=== PATIENT | female | born 1965 | race Caucasian/White ===

== ENCOUNTER → 2021-04-12 08:21 | Outpatient (BNVA) | payer OTHER, SELFPAY | PROVIDERS: PCP Internal Medicine Geriatric Medicine; Visit Provider Anesthesiology ==

== ENCOUNTER → 2021-04-26 08:04 | Outpatient (BNVA) | payer OTHER, SELFPAY | PROVIDERS: PCP Internal Medicine Geriatric Medicine; Visit Provider Anesthesiology ==

== ENCOUNTER 2025-05-03 09:06 | Day surgery (SDC) | payer OTHER, SELFPAY ==
--- OUTSIDE RECORDS SUMMARY | 2024-07-01 11:35 | XMS_ITS ---
Author Organization [facility] Address [address] [place] [phone] Care Team Providers Care River Guide Name Role Phone Foster DANIELLE, Lauren Primary Care Provider Tj Garcia Jr, Lars Unavailable REASON FOR VISIT IBS Encounters Encounter Location Date Provider Diagnosis [facility] [address] [facility] [address] [place] [phone] 07/01/2024 Lars Garcia Jr Plan Of Treatment Next Appt Details Provider Name:Lars barrientos Jr, 05/03/2025 10:20:00 AM, [address] [place] [address] , [place], [place], [phone], Progress Notes * TALA IZQUIERDODOB: 4 (59 yo F)Acc No.[id number]:07/01/2024 Progress Notes Patient: TALA DE OLIVEIRA Provider: Taiwo Garcia MD :1965 A ge:58 Y S ex:Female Date:07/01/2024 Address:[id number] Pcp:Lauren Hutchison MD Subjective: * Chief Complaints: * 1 . IBS. * Medical History: Objective: * Vitals: Assessment: Plan: * Treatment: * * The named appointment provid er may or may not be the originator of this progress note, and it is not deemed complete until electronically signed by the appointment provider. Sign off status: Pending * Provider: Taiwo Garcia MD Date: 1 09/01/2023 Generated for Marry earl/Ted/Gustavoitting on: 0 04/12/2025 04:20 PM EDT
--- OUTSIDE RECORDS SUMMARY | 2025-04-12 16:20 | XMS_ITS | Encounter Summary ---
Author Organization [facility] Address [address] [place] [address] Phone Care Team Providers Care Radio Division Lieutenant Name Role Phone Lauren Hutchison MD Primary Care Provid er Encounter Details Date Type Department Care Team (Late st Contact Info) Description 02/07/2021 Procedure Pass OR Admitting Dept - Virtual Department [address] [place] [address] Social History Tobacco Use Types Packs/Day Years Used Date Smoking Tobacco: Former Cigarettes Q uit: 2002 Smokeless Tobacco: Never Alcohol Use Standard Drinks/Week Comments No 0 (1 standard drink = 0.6 oz pur e alcohol) Comments No Sex and Gender Information Value Date Recorded Sex Assigned at Female 12/19/2022 8:51 AM EDT Legal Sex Female 9:43 PM EDT Gender Identity Female 12/19/2022 8:51 AM EDT Sexual Orientation Choose not to disclose 2022 8:51 AM EDT documented as of this encounter Plan of Treatment Not on file documented as of this encounter Visit Diagnoses Not on filedocumented in this encounter Care Teams Radio Division Lieutenant Relationship Specialty Start Date End Date Lauren Hutchison MD [address] [place] [address] PCP - General Geriatric Psychiatry 03/09/18 documented as of this encounter Additional Source Comments The information contained in this document represents components of the legal health record. It is not the complete legal health record.[facility]
--- OUTSIDE RECORDS SUMMARY | 2025-04-12 16:20 | XMS_ITS | Encounter Summary ---
Author Organization [facility] Address [address] [facility] [address] [place] [address] Phone Care Team Providers Care Nursing Service Director Name Role Phone Lauren Hutchison MD Primary Care Provid er Reason for Referral * Outpatient Procedure - Closed Specialty Diagnoses / Procedures Referred By Damien medel Referred To Contact Diagnoses Cerebral infarction, unspecified mechanism Transient cerebral ischemia, unspecified type Procedures Adult Echo TTE Timmy Gama MD [address] [facility] Radiation oncology [place], [place] Phone: tel: fax: Referral ID Status Reason Start Date Expiration Date Visits Re quested Visits Authorized [id number] Closed 05/31/2021 05/31/2022 1 1 Encounter Details Date Type Department Care Team (Latest Contact Info) Description 05/31/2021 Transcribe Orders Virtual Department [address] [place] [address] Timmy Hudson MD [address] [place] [address], [address] [place] [address] [email or web address] Cerebral infarction, unspecified mechanism; Transient cerebral ischemia, unspecified type Social History Tobacco Use Types Packs/Day Years [...] on file documented as of this encounter Results * TTE COMPREHENSIVE W/ LVO CONTRAST (08/02/2021 11:34 AM EST) Body Surface Area 1.97 m2 Height 160 cm Weight 95 kg Systolic BP 126 mmHg Diastolic BP 72 mmHg Interventricular Septum Thickness 7 mm Left Ventricle Internal Diameter End Diastole 45 37 - 52 mm Left Ventricle Internal Diameter End Systole 31 22 - 35 mm Left Ventricular Outflow Tract Diameter 20.0 mm LVOT VTI REST 161 mm Left Ventricular Outflow Tract Velocity 1.1 m/s Left Ventricular Outflow Tract Gradient at Rest 5 mmHg Left Ventricular Posterior Wall Thickness 7 mm Ejection Fraction 73 50 - 75 Percent Left Atrium Dimension Anterior-Posterior 27 15 - 40 mm Aortic Valve Peak Velocity 133.0 cm/s Aortic Valve Peak Gradient 7 mmHg Aortic Sinus Diameter 30 mm Ascending Aorta Diameter 28 mm Inferior Vena Cava Diameter 13 0 - 21 mm Mitral Valve A Wave Speed 82.3 cm/s Mitral Valve E Wave Speed 48.0 cm/s Right Ventricle Basal Diameter 29.8 25 - 41 mm Tricuspid Valve Peak Velocity 1.8 m/s Raw LV EF% 53 % Left Atrial Volume 25 mL Left Atrial Volume Index 12.69 mL/m2 Right Ventricle Peak Systolic Pressure 16 mmHg Right Ventricle TAPSE 13.0 mm Right Atrium Pressure Estimated 3 mmHg Right Ventricle to Right Atrium Pressure Gradient 13 mmHg Right Ventricle Pulse Doppler S Wave 10.9 cm/s Aortic Valve Sinus Index 1 15 19 - 27 mm Ascending Aorta Diameter 14 mm Aortic Sinus Index 15 mm Ascending Aorta Index 14 mm Anatomical Region Laterality Modality Heart Ultrasound Narrative 08/02/2021 11:54 AM EST The left ventricle is normal in size and thickness. The left ventricular systolic function is normal with ejection fraction of 73%. There is no significant left ventricular wall motion abnormality. There is normal right ventricular size and function. There is trace mitral, and tricuspid valve regurgitation. Pulmonary artery systolic pressure is normal. Unable to visualize if patent foramen ovale/interatrial shunting is present due to poor images. No previous studies are available for comparison. Left Ventricle The left ventricular cavity size and wall thickness are normal. Left ventricular systolic function is normal. The estimated ejection fraction is 73% (Normal 50- 75%). The left ventricular ejection fraction was measured by the single dimension method. Left ventricular diastolic function appears within normal limits for age. Right Ventricle The right ventricular size is normal. The right ventricular systolic function is normal. Left Atrium The left atrium is normal in size. The left atrial anterior-posterior dimension measures 27 mm (normal 15-40 mm). The LA volume is 25 mL. The LA volume index is 12.69 mL/m2 (normal indexed value is 16-34 mL/m2). The pulmonary venous flow profiles are normal. Right Atrium The right atrium is normal in size. The IVC is normal in size (2.1cm or less). The IVC measures 13 mm (normal <=21 mm). The IVC demonstrates normal collapse with inspiration which is consistent with normal RA pressure. Mitral Valve The E/A ratio is 0.6. The Med E' Trevor is 6.3 cm/s and the Lat E' Trevor is 7.2 cm/s. The E/E' AVG is 7.1. There is no evidence of mitral stenosis. There is trace mitral regurgitation detected by spectral and color Doppler. Tricuspid Valve There is no evidence of tricuspid stenosis. There is evidence of trace tricuspid regurgitation by color and spectral Doppler. Normal pulmonary pressure. The RV systolic pressure was estimated from the peak TV regurgitant velocity. The estimated RV systolic pressure is 16 mmHg assuming a right atrial pressure of 3 mmHg. The calculated peak RV-RA pressure gradient is 13 mmHg. Aortic Valve The aortic valve is tricuspid. There is no evidence of valvular aortic stenosis. The peak aortic valve gradient is 7 mmHg. There is no evidence of aortic regurgitation by color and spectral Doppler. The visualized portions of the thoracic aorta appear normal. Pulmonic Valve There is no evidence of pulmonic stenosis. There is no evidence of pulmonary regurgitation by color and spectral Doppler. Pericardium There is no evidence of pericardial effusion. Interatrial Septum The interatrial septum is not well visualized. Unable to visualize if PFO/interatrial shunting is present. General Findings The study was technically difficult (4). Study quality explanation: body habitus. Technique(s) used in the evaluation: Color flow Doppler and Spectral Doppler. The predominant rhythm during the study was sinus. Comparison Findings No prior studies for comparison. us Timmy Gama MD CV ECHO ORDERABLES Final Result documented in this encounter Visit Diagnoses Diagnosis Cerebral infarction, unspecified mechanism Transient cerebral ischemia, unspecified type Cerebral infarction, unspecified mechanism Transient cerebral ischemia, unspecified type documented in this encounter Care Teams Nursing Service Director Relationship Specialty Start Date End Date Lauren Hutchison MD [address] [place] [address] PCP - General Geriatric Psychiatry 03/09/18 documented as of this encounter Additional Source Comments The information contained in this document represents components of the legal health record. It is not the complete legal health record.[facility]
--- OUTSIDE RECORDS SUMMARY | 2025-04-12 16:20 | XMS_ITS | Encounter Summary ---
Author Organization [facility] Address [address] [place] [address] Care Team Providers Care Rehabilitation Liaison Name Role Phone Lauren Hutchison MD Primary Care Provider [phone] Sandra Aquino RN Unavailable [phone] Encounter Details Date Type Department Care Team (Late Contact Info) Description 06/19/2023 Scanned Document [facility] [id number] [address] [address] Amanuel Montalvo MD [address] [place] [address] Social History Tobacco Use Types Packs/Day Years Used Date Smoking Tobacco: Never Smokeless Tobacco: Never Alcohol Use Standard Drinks/Week Comments Not Currently 0 (1 standard drink = 0.6 oz pur e alcohol) Comments Unknown Sex and Gender Information Value Date Recorded Sex Assigned at Female 08/30/2024 5:58 AM EST Legal Sex Female 9:28 AM EDT Gender Identity Female 08/30/2024 5:58 AM EST Sexual Orientation Heterosexual (straight) 08/30 5:58 AM EST documented as of this encounter Plan of Treatment Upcoming Encounters Date Type Department Care Team ([facility] Contact Info) Description 05/26/2025 11:00 AM EST Office Visit [facility] [id number] [address] [address] Trever Dickson PA [address] [place] [address] documented as of this encounter Visit Diagnoses Not on filedocumented in this encounter Care Teams Rehabilitation Liaison Relationship Specialty Start Date End Date Lauren Hutchison MD [address] [place] [address] PCP - General 05/05/23 Sandra Aquino RN [address] [place] [address] Nurse Navigator Surgery, Neurosurgery 09/09/24 12/09/24 documented as of this encounter
--- OUTSIDE RECORDS SUMMARY | 2025-04-12 16:20 | XMS_ITS | Encounter Summary ---
Author Organization [facility] Address [address] [place] [address] Care Team Providers Care Display Maker Name Role Phone Lauren Hutchison MD Primary Care Provider [phone] Sandra Aquino RN Unavailable [phone] Encounter Details Date Type Department Care Team (Late Contact Info) Description 06/19/2023 Scanned Document [facility] [id number] [address] [address] Amanuel Montalvo MD [address] [place] [address] Social History Tobacco Use Types Packs/Day [...] Upcoming Encounters Date Type Department Care Team ([facility] Contact Info) Description 05/26/2025 11:00 AM EST Office Visit [facility] [id number] [address] [address] Trever Dickson PA [address] [place] [address] documented as of this encounter Visit Diagnoses Not on filedocumented in this encounter Care Teams Display Maker Relationship Specialty Start Date End Date Lauren Hutchison MD [address] [place] [address] PCP - General 05/05/23 Sandra Aquino RN [address] [place] [address] Nurse Navigator Surgery, Neurosurgery 09/09/24 12/09/24 documented as of this encounter
--- OUTSIDE RECORDS SUMMARY | 2025-04-12 16:20 | XMS_ITS | Encounter Summary ---
Author Organization [facility] Address [address] [place] [address] Care Team Providers Care Oil Burner Name Role Phone Lauren Hutchison MD Primary Care Provider [phone] Sandra Aquino RN Unavailable [phone] Encounter Details Date Type Department Care Team (Late Contact Info) Description 02/05/2024 Scanned Document [facility] NEUROSURGERY SCAN Neurosurgery, Scan Social History Tobacco Use Types Packs/Day Years [...] Upcoming Encounters Date Type Department Care Team (Late Contact Info) Description 05/26/2025 11:00 AM EST Office Visit [facility] [id number] [address] [place] [address] Trever Dickson PA [address] [place], [place] [id number] documented as of this encounter Visit Diagnoses Not on filedocumented in this encounter Care Teams Oil Burner Relationship Specialty Start Date End Date Lauren Hutchison MD [address] [facility] [place], [place] [address] PCP - General 05/05/23 Sandra Aquino, PHILLIP [address] [place] [address] Nurse Navigator Surgery, Neurosurgery 09/09/24 12/09/24 documented as of this encounter
--- OUTSIDE RECORDS SUMMARY | 2025-04-12 16:20 | XMS_ITS | Clinical Summary ---
Author Organization [facility] Address [address] [place] [address] Care Team Providers Care Operating Room Surgical Technologist Name Role Phone Lauren Hutchison MD Primary Care Provider [phone] Allergies Active Allergy Reactions Criticality Noted Date Comments Influenza Virus Vaccine 02/01/2021 All flu shots arm swelling redness painful for about a week after unless she takes benedryl Naproxen 12/12/2016 Other reaction(s): Dizziness Medications Medication Sig Dispensed Refills Start Date End Date Status traMADol (ULTRAM) 50 MG tablet Take 50 mg by mouth every 12 (twelve) hours as needed. 0 Active nortriptyline (PAMELOR) 10 MG capsule 0 10/29/2023 Active RABEprazole (ACIPHEX) 20 MG tablet 0 10/14/2023 Active atorvastatin (LIPITOR) tablet 20 mg Take 1 tablet (20 mg total) by mouth daily. 0 09/27/2023 Active amLODIPine (NORVASC) tablet 5 mg 0 09/30/2023 Active gabapentin (NEURONTIN) 600 MG tablet 0 09/11/2023 Active metaxalone (SKELAXIN) 800 MG tablet TAKE 1 TABLET BY MOUTH FOUR TIMES A DAY NEEDED SPASM 0 09/27/2023 Active clonazePAM (KlonoPIN) 0.5 MG tablet 0 09/23/2023 Active aspirin 81 MG EC tablet Take 1 tablet (81 mg total) by mouth. 0 Active Specialty Vitamins Products (ECHINACEA C COMPLETE PO) Take by mouth. 0 Active ondansetron (ZOFRAN) 4 MG tablet Take by mouth. 0 Active Social History Tobacco Use Types Packs/Day Years Used Date Smoking Tobacco: Never Assessed Tobacco Cessation:Counseling Given: Not Answered Sex and Gender Information Value Date Recorded Sex Assigned at Not on file Gender Identity Not on file Sexual Orientation Not on file Job Start Date Occupation Industry Not on file Not on file Not on file Last Filed Vital Signs Vital Sign Reading Time Taken Comments Blood Pressure 162/87 11/27/2023 2:00 PM EDT Pulse 105 11/27/2023 2:00 PM EDT Temperature 36.3 C (97.4 F) 11/27/2023 2:00 PM EDT Respiratory Rate - - Oxygen Saturation 98% 11/27/2023 2:00 PM EDT Inhaled Oxygen Concentration - - Weight 93 kg (205 lb) 11/27/2023 2:00 PM EDT Height 157.5 cm (5' 2 ) 11/27/2023 2:00 PM EDT Body Mass Index 37.49 11/27/2023 2:00 PM EDT Plan of Treatment Health Maintenance Due Date Last Done Comments Hepatitis C Screening 1965 Depression Screening 1975 BMI Counseling 12/05/1981 Preventative Health Evaluation 12/05/1981 DTap / Tdap / Td (1 - Tdap) 12/05/1982 Cervical Cancer Screening (Pap Smear) 12/05/1984 Colon Cancer Screening (Colonoscopy) 12/05/2008 Breast Cancer Screening (Mammogram) 12/05/2013 Shingrix-Zoster Vaccine (1 of 2) 12/05/2013 COVID-19 Vaccine ( season) 2025 06/23/2021 Influenza Vaccine (#1) 2025 3, 05/08/2022, 04/25/2021, Additional history exists RSV Adult > 60+ Yrs or (1 - 1-dose 75+ series) 12/05/2038 Hepatitis B Vaccines Aged Out No long er eligible based on patient's age to complete this topic Pneumococcal Vaccine Aged Out No long er eligible based on patient's age to complete this topic RSV Ped < 20 months Aged Out No longe r eligible based on patient's age to complete this topic Insurance Payer Benefit Plan / Group Subscriber ID Effective Dates Phone Address [facility] [id number] 2021-Present [address] [facility] [address] [place] [address] HMO Care Teams Operating Room Surgical Technologist Relationship Specialty Start Date End Date Lauren Hutchison MD [address] [facility] Primary [place] [phone] PCP - General Internal Medicine 06/06/21
--- OUTSIDE RECORDS SUMMARY | 2025-04-12 16:20 | XMS_ITS | Encounter Summary ---
Author Organization [facility] Address [address] [address] Phone Care Team Providers Care Gym Teacher Name Role Phone Lauren Hutchison MD Primary Care Provid er Encounter Details Date Type Department Care Team ([facility] st Contact Info) Description 05/31/2021 Procedure Pass [facility] [address] [place] [address] Social History Tobacco Use Types Packs/Day Years [...] on filedocumented in this encounter Care Teams Gym Teacher Relationship Specialty Start Date End Date Lauren Hutchison MD [address] [place] [address] PCP - General Geriatric Psychiatry 03/09/18 documented as of this encounter Additional Source Comments The information contained in this document represents components of the legal health record. It is not the complete legal health record.[facility]
--- OUTSIDE RECORDS SUMMARY | 2025-04-12 16:21 | XMS_ITS | Encounter Summary ---
Author Organization [facility] Address [address] [place] [address] Care Team Providers Care Deck Lid Fitter Name Role Phone Lauren Hutchison MD Primary Care Provider [phone] Sandra Aquino RN Unavailable [phone] Encounter Details Date Type Department Care Team (Late Contact Info) Description 04/22/2024 Scanned Document [facility] NEUROSURGERY SCAN Neurosurgery, Scan Social History [...] 11:00 AM EST Office Visit [facility] [id number] [address] [place] [address] Trever Dickson PA [address] [place], [place] [phone] documented as of this encounter Visit Diagnoses Not on filedocumented in this encounter Care Teams Deck Lid Fitter Relationship Specialty Start Date End Date Lauren Hutchison MD [address] [facility] [place], [place] [address] PCP - General 05/05/23 Sandra Aquino, PHILLIP [address] [place] [address] Nurse Navigator Surgery, Neurosurgery 09/09/24 12/09/24 documented as of this encounter
--- OUTSIDE RECORDS SUMMARY | 2025-04-12 16:21 | XMS_ITS | Encounter Summary ---
Author Organization [facility] Address [address] [facility] [address] [place] [address] Phone Care Team Providers Care Base Filler Operator Name Role Phone Lauren Hutchison MD Primary Care Provid er Encounter Details Date Type Department Care Team ([facility] st Contact Info) Description 01/16/2021 Prep for Surgery [facility] [address] [place] [address] Rylie Mcnair MD [address] [place] [address] Orthopedics & Sports Medicine, [facility]. [place], [place] [phone] [email or web address] Social History Tobacco Use Types Packs/Day Years [...] on filedocumented in this encounter Care Teams Base Filler Operator Relationship Specialty Start Date End Date Lauren Hutchison MD [address] [facility] [place], [place] [id number] PCP - General Geriatric Psychiatry 03/09/18 documented as of this encounter Additional Source Comments The information contained in this document represents components of the legal health record. It is not the complete legal health record.[facility]
--- OUTSIDE RECORDS SUMMARY | 2025-04-12 16:21 | XMS_ITS ---
Author Name [facility] Organization Unknown History of Medication Use Medication Directions Dispensed Refills Start Date End Date Stat lidocaine (LIDODERM) 5 % patch Place 1 patch on the skin daily. Apply patch to left hip and leave on for 12 hours then remove. Patch may remain on skin for 12 hours per day. 12/10/2024 active acetaminophen (TYLENOL) 325 MG tablet Take 2 tablets (650 mg total) by mouth 4 times daily (every 6 hours) as needed for mild pain, moderate pain, headaches or fever. 09/08/2024 active methocarbamol (ROBAXIN) 750 MG tablet Take 1 tablet (750 mg total) by mouth 4 times daily (every 6 hours) as needed for muscle spasms. 09/08/2024 active oxyCODONE (ROXICODONE) 5 MG immediate release tablet Take 1 tablet (5 mg total) by mouth every 4 (four) hours as needed for severe pain. Max Daily Amount: 30 mg 09/08/2024 active fluticasone (FloNASE) 50 mcg/spray nasal spray 1 spray into each nostril as needed. 01/29/2024 active estradiol (Yuvafem) 10 MCG vaginal tablet See Instructions, TAKE 1 TABLET VAGINALLY AT BEDTIME TWICE WEEKLY, # 26 tablet, 3 Refills, Maintenance, 08/19/23 17:04:00 EST, [facility], 158, cm, 07/31/23 9:51:00 EST, Height, 93.6, kg, 01/30/23 10:10:00 EDT, Dry Weight 08/19/2023 active traMADol (ULTRAM) 50 MG tablet 05/20/2023 active metaxalone (SKELAXIN) 800 MG tablet 05/16/2023 active metaxalone (SKELAXIN) 800 MG tablet Take 1 tablet (800 mg total) by mouth 3 times daily (every 8 hours) as needed. 05/16/2023 active nortriptyline (PAMELOR) 10 MG capsule 3 capsules (30 mg total) nightly. 04/17/2023 active DULoxetine (CYMBALTA) 60 MG capsule 04/03/2023 aborted amLODIPine (NORVASC) 5 MG tablet 04/03/2023 active amLODIPine (NORVASC) 5 MG tablet 1 tablet (5 mg total) nightly. 04/03/2023 active atorvastatin (LIPITOR) 20 MG tablet Take 1 tablet (20 mg total) by mouth daily. 03/13/2023 active gabapentin (NEURONTIN) 600 MG tablet 03/10/2023 active gabapentin (NEURONTIN) 600 MG tablet Take 1 tablet (600 mg total) by mouth 2 (two) times a day. 03/10/2023 active RABEprazole (ACIPHEX) 20 MG tablet 03/10/2023 active acetaminophen (TYLENOL) 500 MG tablet Take 1 tablet (500 mg total) by mouth 4 times daily (every 6 hours) as needed. active DULoxetine (Cymbalta) 60 MG capsule Take 1 capsule (60 mg total) by mouth every morning. active methylPREDNISolone (MEDROL) 4 MG tablet Take 1 tablet (4 mg total) by mouth daily. Take with meals or food to reduce stomach upset. active Probiotic Product (PROBIOTIC PO) Take by mouth every morning. active Allergies Allergen Reaction Severity Comment Documented Date Source Statu s CORTISONE OTHER (SEE COMMENTS)UNKNOWN/ PATIENT AND FAMILY UNABLE TO DEFINE Per patient certain cortisone cause dizziness & nauseous 04/03/20[facility] PEANUT OIL ANAPHYLAXIS 02/01/2021 [facility] active NUTS ANAPHYLAXIS 01/31/2021 [facility] active NAPROXEN OTHER (SEE COMMENTS) 12/12/2016 [facility] active INFLUENZA VACCINES UNKNOWN/PATIENT AND FAMILY UNABLE TO DEFINE All flu shots arm swelling redness painful for about a week after unless she takes benedryl [facility] Problems Problem Status Onset Date Problem Type Date of Resoluti on Source Pain of left hip active 2024-12-10 [facility] Spondylosis of lumbar spine active 2023-05-22 [facility] Sacroiliac joint pain active 2023-05-22 ProblemAct [facility] Sprain of sacroiliac ligament active 2024-03-17 ProblemAct [facility] Encounters Encounter Type Encounter Reason Primary Diagnosis Location Date Ambulatory Sacrococcygeal disorders, not elsewhere classified Sacrococcygeal disorders, not elsewhere classified [facility] 02/21/2025 Ambulatory [facility] 01/31/2025 Ambulatory Knee Pain Knee Pain [facility] 12/10/2024 Ambulatory [facility] 10/28/2024 Ambulatory Sacrococcygeal disorders, not elsewhere classified Sacrococcygeal disorders, not elsewhere classified [facility] 10/28/2024 Ambulatory Sacrococcygeal disorders, not elsewhere classified Sacrococcygeal disorders, not elsewhere classified [facility] 09/15/2024 Inpatient Sacrococcygeal disorders, not elsewhere classified Sacrococcygeal disorders, not elsewhere classified [facility] 08/30/2024 Ambulatory [facility] 04/30/2024 Ambulatory Sacrococcygeal disorders, not elsewhere classified Sacrococcygeal disorders, not elsewhere classified [facility] 03/17/2024 Ambulatory Sacrococcygeal disorders, not elsewhere classified Sacrococcygeal disorders, not elsewhere classified [facility] 02/05/2024 Ambulatory Sacrococcygeal disorders, not elsewhere classified Sacrococcygeal disorders, not elsewhere classified [facility] 08/07/2023 Ambulatory [facility] 07/30/2023 Ambulatory Sacrococcygeal disorders, not elsewhere classified Sacrococcygeal disorders, not elsewhere classified [facility] 05/22/2023 Ambulatory [facility] 05/22/2023 Care Team Organization Name Specialty Phone Email Start Date End [address] [facility] 11/13/2024 [facility] 11/01/202403/22 [facility] 05/23/202305/23 [facility] 05/22/202303/22 [facility]
--- OUTSIDE RECORDS SUMMARY | 2025-04-12 16:21 | XMS_ITS | Clinical Summary ---
Author Organization [facility] Address [address] [facility] [address] [place] [address] Phone Care Team Providers Care Auto Dismantler Name Role Phone Lauren Hutchison MD Primary Care Provid er Allergies Active Allergy Reactions Criticality Noted Date Comments Flu Vac 2011 (18-64yrs)(Pf) 02/01/2021 All flu shots arm swelling redness painful for about a week after unless she takes benedryl Naproxen Dizziness 12/12/2016 Peanut Anaphylaxis High 02/01/2021 Medications DULOXETINE HCL (CYMBALTA ORAL) 60mg in Am and 30mg in PM Active gabapentin (NEURONTIN) 600 MG tablet Take 600 mg by mouth 3 (three) times a day. Active RABEprazole (ACIPHEX) 20 mg tablet Take 20 mg by mouth 2 (two) times a day. Active Medication-Free Text herbals Active traMADol (ULTRAM) 50 mg tablet Take 50 mg by mouth every 12 (twelve) hours as needed for pain (specific location in comments). Patient states this is PRN for her back-[employer]. Active aspirin 81 MG EC tablet Take 81 mg by mouth daily. Active acetaminophen (TYLENOL) 500 MG tabletIndication s:1-2 tabs Take 500 mg by mouth every 6 (six) hours as needed for pain (specific location in comments). Active amLODIPine (NORVASC) 5 MG tablet Take 5 mg by mouth daily. 0 Active YUVAFEM 10 mcg Tab 10 mcg every 7 days. 0 Active metaxalone (SKELAXIN) 800 MG tablet Take 800 mg by mouth 4 (four) times a day as needed. 0 Active Lactobacillus acidophilus (LACTOBACILL.ACI DOPHILUS, BULK, MISC) Take 2-4 capsules by mouth daily. Active nortriptyline (PAMELOR) 10 MG capsule Take 30 mg by mouth nightly at bedtime. 1 Active ascorbic acid, vitamin C, (VITAMIN C) 250 MG tablet Take 250 mg by mouth daily. Active ECHINACEA ORAL Take by mouth. Active clonazePAM (KLONOPIN) 0.5 MG tablet Take 0.5 mg by mouth 2 (two) times a day as needed for anxiety. Active atorvastatin (LIPITOR) 20 MG tablet Take 1 tablet by mouth every morning. 3 Active Active Problems Problem Noted Date Diagnosed Date Disorder of sacrum 07/18/2022 Instability of right sacroiliac joint 05/19/2018 Sacroiliitis, not elsewhere classified 8 Morbid obesity with BMI of 40.0-44.9, adult 02/19 Myalgia 03/15/2018 Encounter for preoperative s creening laboratory testing for COVID-19 virus Family History Medical History Relation Comments CV disease Mother 2 Relation Status Comments Mother 1 Mother 2 Social History Tobacco Use Types Packs/Day Years Used Date Smoking Tobacco: Former Cigarettes Q uit: 2002 Smokeless Tobacco: Never Alcohol Use Standard Drinks/Week Comments No 0 (1 standard drink = 0.6 oz pur e alcohol) Education Answer Date Recorded Are you interested in more education? Not on gage e 11/15/2022 Are you concerned about learning? Not on file 11/15/2022 No 11/15/2022 No 11/15/2022 Digital Access Answer Date Recorded No 12/11/2022 No 12/11/2022 Reliable internet access at home? Not on file 12/11/2022 Device with a working camera? Not on file Comments No Sex and Gender Information Value Date Recorded Sex Assigned at Female 12/19/2022 8:51 AM EDT Legal Sex Female 9:43 PM EDT Gender Identity Female 12/19/2022 8:51 AM EDT Sexual Orientation Choose not to disclose 2022 8:51 AM EDT Last Filed Vital Signs Vital Sign Reading Time Taken Comments Blood Pressure 127/78 12/11/2022 8:26 AM EDT Pulse 89 12/11/2022 8:26 AM EDT Temperature 36.9 C (98.4 F) 02/07/2021 10:10 AM EDT Respiratory Rate 16 12/11/2022 8:26 AM EDT Oxygen Saturation 98% 02/07/2021 10:40 AM EDT Inhaled Oxygen Concentration - - Weight 93.9 kg (207 lb) 12/11/2022 8:26 AM EDT Height 160 cm (5' 3 ) 12/11/2022 8:26 AM EDT Body Mass Index 36.67 12/11/2022 8:26 AM EDT Plan of Treatment Health Maintenance Due Date Last Done Comments LIPID PANEL 1963 DEPRESSION SCREENING 1975 SMOKING Hx and SMOKELESS TOBACCO SCREENING 12/05/1976 HEPATITIS C SCREENING 12/05/1981 HIV ONE-TIME SCREENING (18-6 5 YEARS) 12/05/1981 PAP SMEAR 12/05/1984 SCREENING FOR DIABETES 12/05/1998 MAMMOGRAM 2003 COLOGUARD 12/05/2008 COLONOSCOPY 12/05/2008 COLORECTAL CANCER SCREENING 12/05/2008 FIT TEST 12/05/2008 FOBT 12/05/2008 SIGMOIDOSCOPY 12/05/2008 VIRTUAL COLONOSCOPY 12/05/2008 PNEUMOCOCCAL VACCINES (50+ years) (1 of 1 - PCV) 12/05/2013 ZOSTER VACCINES (1 of 2) 12/05/2013 RSV VACCINE (1 - Risk 60-74 years 1-dose series) 2023 Adult Td,Tdap Booster 01/31/2025 01/31/2015 INFLUENZA VACCINE (#1) 2025 2, 04/25/2021, 05/19/2017 COVID-19 VACCINE (4 - 2024-2 6 season) 2025 06/23/2021, 09/15/2020, 08/18/2020 HEPATITIS A VACCINES Aged Out No long er eligible based on patient's age to complete this topic HIB VACCINES Aged Out No longer eligi ble based on patient's age to complete this topic MENINGOCOCCAL VACCINES (ACWY) Aged Out No longer eligible based on patient's age to complete this topic MENINGOCOCCAL VACCINES (B) Aged Out N o longer eligible based on patient's age to complete this topic Medical Devices Implanted Type Area Cash Control Specialist Device Identifier Shelf Expiration Date Model / Serial / Lot Filler Bone Sm Graft Demineralized Orthoblend Container 10ml Volume - [id number] Implanted:Qty: 1 on 05/19/2018 by Helder Jaramillo MD at [facility] STANDARD [employer] 08/25/2019 [id number] / / [id number] Description:Right si joint s ite Device Threaded 12x40 Seffner Si Fusion System Strl Spine Code 56 - [id number] Implanted:Qty: 1 on 05/19/2018 by Helder Jaramillo MD at [facility] [employer] 11/18/2025 [id number] / / [id number] Device Threaded 12x50 Seffner Si Fusion System Strl Spine Code 56 - [id number] Implanted:Qty: 1 on 05/19/2018 by Helder Jaramillo MD at [facility] [employer] 08/07/2025 [id number] / / [id number] [place] [address] [place] [address] [place] [address] [place] [address] [facility] [place] [address] [place] [address] [place] [address] [place] [address] [place] [address] [place] [address] Care Teams Auto Dismantler Relationship Specialty Start Date End Date Lauren Hutchison MD [address] [place] [address] PCP - General Geriatric Psychiatry 03/09/18 Additional Source Comments The information contained in this document represents components of the legal health record. It is not the complete legal health record.[facility]
--- OUTSIDE RECORDS SUMMARY | 2025-04-12 16:21 | XMS_ITS | Patient Health Record ---
Author Organization [facility] Address [address] [place] [address] Care Team Providers Care Pharmacy District Manager Name Role Phone Foster DANIELLE, Lauren Primary Care Provider Lars Henderson Jr Unavailable [phone] Allergies Allergen (clinical drug ingredient) Drug/Non Drug Allergy documented on EMR Reaction Allergy Type Onset Date Status Flu Virus Vaccine Unknown Drug Allergy Active cortisone Cortisone Unknown Drug Allergy Active certain nuts (uncoded) Unknown Allergy Active Reason For Referral No Information Medications Medication SIG (Take, Route, Frequency, Duration) Notes Start Date End Date Status Atorvastatin Calcium 20 MG Oral for 90 Active amLODIPine Besylate 5 MG Oral for 90 Active clonazePAM 0.5 MG Oral for 30 as needed Active traMADol HCl 50 MG TAKE 1 TABLET BY AMAURY TH TWICE A DAY NEEDED FOR PAIN *INS LIMITS TO 7 DAYS SUPPLY Oral for 7 as needed Active Metaxalone 800 MG TAKE 1 TABLET BY AMAURY TH FOUR TIMES A DAY NEEDED SPASM Oral for 30 Active Probiotic Active RABEprazole Sodium 20 MG TAKE ONE TABLET BY MOUTH TWO TIMES A DAY for 60 Active Gabapentin 600 MG 1 tablet Orally thre e times a day Active Ondansetron HCl 4 MG 1 tablet Orally One to 3 times daily for nausea for 14 days Active Cymbalta 60 MG 1 capsule Orally Onc e a day for 30 day(s) Active Nortriptyline HCl 25 MG 3 pills Orally a t night Active Immunizations Vaccine Route Administration Date Status Comme nts Influenza Unknown 04/20/2020 Administered Influenza Unknown 05/25/2024 Administered Social History Tobacco Use: Social History Observation Description Date Details (start date - stop date) Never Smoker NA - NA Tobacco Use/Smoking Question Answer Notes Patient is a nonsmoker Alcohol Screen Question Answer Notes Did you have a drink containing alcohol in the p ast year? No Points 0 Interpretation Negative Problems Problem Type SNOMED Code ICD Code Onset Dates Problem Status W/U Status Risk Notes Problem 601170940 Colon cancer screening (Z12.11) Active confirmed Problem 878199388 Nausea (R11.0) Active confirmed Problem Iron deficiency anemia (95143070) Iron deficiency anemia (D50.9) Active confirmed Problem 621979199 Gastroesophageal reflux disease without esophagitis (K21.9) Active confirmed Problem 382832663 Irritable bowel syndrome with constipation (K58.1) Active confirmed Vital Signs Temperature 97.1 degrees Fahrenheit 06/14/2024 Blood pressure diastolic 77 mm Hg 12/16/2024 Height 62 in 12/16/2024 Blood pressure systolic 111 mm Hg 12/16/2024 Weight 186 lbs 12/16/2024 BMI 34.02 kg/m2 12/16/2024 Encounters Encounter Location Date Provider Diagnosis [facility] [address] [place] [phone] 06/14/2024 Lars Garcia Jr Irritable bowel syndrome with constipation K58.1 and Gastroesophageal reflux disease without esophagitis K21.9 [facility] [address] [place] [phone] 12/16/2024 Lars Garcia Jr Gastroesophageal reflux disease without esophagitis K21.9 ; Irritable bowel syndrome with constipation K58.1 and Colon cancer screening Z12.11 [facility] [address] [place] [phone] 05/13/2024 Lars Garcia Jr [facility] [address] [place] [phone] 05/26/2024 Lars Garcia Jr [facility] [address] [place] [phone] 12/16/2024 Lars Garcia Jr [facility] [address] [place] [phone] 03/30/2025 Lars Garcia Jr Iron deficiency anemia D50.9 Assessments Encounter Date Diagnosis (ICD Code) Assessment Notes Treatment Notes Treatment Clinical Notes Section Notes 06/14/2024 Gastroesophageal reflux disease without esophagitis (ICD-10 - K21.9) We discussed th e irritable bowel syndrome today. We discussed the high-fiber diet. We recommended fiber supplementation aiming for 20-30 g of fiber per day. We gave her per the information on high-fiber diet. She will adjust fiber appropriately and let us know how she's doing a month. She is scheduling back surgery which has been very stressful for her and we discussed that stress makes GI problems worse. Reflux symptoms are under good control. She will continue her present regimen. At her six-month followup we will rediscuss colonoscopy based on the limitations of her previous procedure. 06/14/2024 Irritable bowel syndrome with constipation (ICD-10 - K58.1) Irritable bowel syndrome material was printed We discussed the irritable bowel syndrome today. We discussed the high-fiber diet. We recommended fiber supplementation aiming for 20-30 g of fiber per day. We gave her per the information on high-fiber diet. She will adjust fiber appropriately and let us know how she's doing a month. She is scheduling back surgery which has been very stressful for her and we discussed that stress makes GI problems worse. Reflux symptoms are under good control. She will continue her present regimen. At her six-month followup we will rediscuss colonoscopy based on the limitations of her previous procedure. 12/16/2024 Gastroesophageal reflux disease without esophagitis (ICD-10 - K21.9) We discussed gastroesophageal reflux disease today. We discussed diet, lifestyle modifications, and weight management regarding the treatment of reflux. She will continue rabeprazole. Her IBS symptoms appear relatively well-controlled. She can continue fiber supplementation and use MiraLAX on a as needed basis. She will consider colonoscopy. She will let us know when she elects to proceed with this. Routine laboratory studies have been ordered. 03/30/2025 Iron deficiency anemia (ICD-10 - D50.9) 12/16/2024 Irritable bowel syndrome with constipation (ICD-10 - K58.1) We discussed gastroesophageal reflux disease today. We discussed diet, lifestyle modifications, and weight management regarding the treatment of reflux. She will continue rabeprazole. Her IBS symptoms appear relatively well-controlled. She can continue fiber supplementation and use MiraLAX on a as needed basis. She will consider colonoscopy. She will let us know when she elects to proceed with this. Routine laboratory studies have been ordered. 12/16/2024 Colon cancer screening (ICD-10 - Z12.11) We discussed gastroesophageal reflux disease today. We discussed diet, lifestyle modifications, and weight management regarding the treatment of reflux. She will continue rabeprazole. Her IBS symptoms appear relatively well-controlled. She can continue fiber supplementation and use MiraLAX on a as needed basis. She will consider colonoscopy. She will let us know when she elects to proceed with this. Routine laboratory studies have been ordered. Plan Of Treatment Pending Test Test Name Order Date LIVER PROFILE 12/16/2024 LIPASE 12/16/2024 CBC w/o DIFF 12/16/2024 TSH reflex Free T4 12/16/2024 Future Test Test Name Order Date UPPER GI ENDOSCOPY 03/30/2025 COLONOSCOPY 03/30/2025 Next Appt Details Provider Name:Larsrosa barrientos , 05/03/2025 10:20:00 AM, [address] [place] [address] , [place], [place], [id number], Insurance Providers Payer Name Payer Address Payer Phone Subscriber Number Group Number Insured Name Patient Relationship to Insured Coverage Start Date Coverage End Date [facility] [address] [place] [phone] [id number] [id number] ANDERSON Self - patient is the insured 5 Medical (General) History Medical History History ICD Code Hypertension Hyperlipidemia Fibromyalgia Gastroesophageal reflux disease, EGD 02/20 08/09, no H. pylori or BE Back pain Migraines Colonoscopy 03/20/20, limited exam due to prep. Surgical History Surgery Date(Month/Year) sacral fusion surgery laminectomy (Zoila Rolon) 07/2021 sacriliac fusion 2018 laminectomy 2009 Hospitalization History Reason Date(Month/Year) vertigo 2018
--- OUTSIDE RECORDS SUMMARY | 2025-04-12 16:21 | XMS_ITS | Encounter Summary ---
Author Organization [facility] Address [address] [place] [address] Care Team Providers Care Online Marketing Coordinator Name Role Phone Lauren Hutchison MD Primary Care Provider [phone] Sandra Aquino RN Unavailable [phone] Encounter Details Date Type Department Care Team (Late Contact Info) Description 06/29/2024 Scanned Document [facility] NEUROSURGERY SCAN Neurosurgery, Scan Social History [...] 11:00 AM EST Office Visit [facility] [id number] [address] [place] [phone] Trever Dickson PA [address] [place], [place] [id number] documented as of this encounter Visit Diagnoses Not on filedocumented in this encounter Care Teams Online Marketing Coordinator Relationship Specialty Start Date End Date Lauren Hutchison MD [address] [facility] [place], [place] [address] PCP - General 05/05/23 Sandra Aquino, PHILLIP [address] [place] [address] Nurse Navigator Surgery, Neurosurgery 09/09/24 12/09/24 documented as of this encounter
--- OUTSIDE RECORDS SUMMARY | 2025-04-12 16:21 | XMS_ITS | Encounter Summary ---
Author Organization [facility] Address [address] [place] [address] Care Team Providers Care Chief Meteorologist Name Role Phone Lauren Hutchison MD Primary Care Provider [phone] Sandra Aquino RN Unavailable [phone] Encounter Details Date Type Department Care Team (Late Contact Info) Description 04/09/2024 Scanned Document [facility] [id number] [address] [phone] Adeline Herrera PA-C [address] [place] [address] Social History Tobacco Use Types Packs/Day Years [...] Upcoming Encounters Date Type Department Care Team ([facility] Contact Info) Description 05/26/2025 11:00 AM EST Office Visit [facility] [id number] [address] [phone] Trever Dickson PA [address] [place] [address] documented as of this encounter Visit Diagnoses Not on filedocumented in this encounter Care Teams Chief Meteorologist Relationship Specialty Start Date End Date Lauren Hutchison MD [address] [place] [address] PCP - General 05/05/23 Sandra Aquino RN [address] [place] [address] Nurse Navigator Surgery, Neurosurgery 09/09/24 12/09/24 documented as of this encounter
--- OUTSIDE RECORDS SUMMARY | 2025-04-12 16:21 | XMS_ITS | Encounter Summary ---
Author Organization [facility] Address [address] [place] [address] Phone Care Team Providers Care Occupational Health Nurse Supervisor Name Role Phone Lauren Hutchison MD Primary Care Provid er Encounter Details Date Type Department Care Team (Late st Contact Info) Description 03/12/2023 Telephone Data Stream [facility] Spine Medicine [address] [place] [address] Jose Rincon [place] [email or web address] Social History Tobacco Use Types Packs/Day Years [...] on filedocumented in this encounter Care Teams Occupational Health Nurse Supervisor Relationship Specialty Start Date End Date Lauren Hutchison MD [address] [place] [address] PCP - General Geriatric Psychiatry 03/09/18 documented as of this encounter Additional Source Comments The information contained in this document represents components of the legal health record. It is not the complete legal health record.[facility]
--- OUTSIDE RECORDS SUMMARY | 2025-04-12 16:21 | XMS_ITS | Encounter Summary ---
Author Organization [facility] Address [address] [place] [address] Phone Care Team Providers Care Management Planner Name Role Phone Lauren Hutchison MD Primary Care Provid er Encounter Details Date Type Department Care Team (Late st Contact Info) Description 10/07/2022 Procedure Pass [facility], Ct Scan - [address] [address] Social History Tobacco Use Types Packs/Day Years [...] on filedocumented in this encounter Care Teams Management Planner Relationship Specialty Start Date End Date Lauren Hutchison MD [address] [place] [address] PCP - General Geriatric Psychiatry 03/09/18 documented as of this encounter Additional Source Comments The information contained in this document represents components of the legal health record. It is not the complete legal health record.[facility]
--- OUTSIDE RECORDS SUMMARY | 2025-04-12 16:21 | XMS_ITS | Encounter Summary ---
Author Organization [facility] Address [address] [place] [address] Phone Care Team Providers Care Benzol Still Operator Name Role Phone Lauren Hutchison MD Primary Care Provid er Encounter Details Date Type Department Care Team (Late st Contact Info) Description 05/19/2018 Procedure Pass [place] Admitting Dept - Virtual Department [address] [place] [address] Social History Tobacco Use Types Packs/Day Years [...] on filedocumented in this encounter Care Teams Benzol Still Operator Relationship Specialty Start Date End Date Lauren Hutchison MD [address] [place] [address] PCP - General Geriatric Psychiatry 03/09/18 documented as of this encounter Additional Source Comments The information contained in this document represents components of the legal health record. It is not the complete legal health record.[facility]
--- OUTSIDE RECORDS SUMMARY | 2025-04-12 16:21 | XMS_ITS | Encounter Summary ---
Author Organization [facility] Address [address] [place] [address] Care Team Providers Care Pantograph Operator Name Role Phone Lauren Hutchison MD Primary Care Provider [phone]- [phone] Sandra Aquino RN Unavailable [phone] Encounter Details Date Type Department Care Team (Late st Contact Info) Description 08/23/2024 Telephone [facility] Neurosurgery [place] [address] [place] [phone] Maria Ybarra MA [address] [facility] [address] [place], [place] [phone] Social History Tobacco Use Types Packs/Day Years Used Date Smoking Tobacco: Never Smokeless Tobacco: Never Alcohol Use Standard Drinks/Week Comments Not Currently 0 (1 standard drink = 0.6 oz pur e alcohol) AUDIT-C Answer Date Recorded Q1: How often do you have a drink containing alcohol? Never 08/20/2024 Q2: How many drinks containi ng alcohol do you have on a typical day when you are drinking? Patient does not drink Q3: How often do you have si x or more drinks on one occasion? Never 08/20/2024 Comments Unknown Sex and Gender Information Value Date Recorded Sex Assigned at Female 08/30/2024 5:58 AM EST Legal Sex Female 9:28 AM EDT Gender Identity Female 08/30/2024 5:58 AM EST Sexual Orientation Heterosexual (straight) 08/30 5:58 AM EST documented as of this encounter Plan of Treatment Upcoming Encounters Date Type Department Care Team (Late st Contact Info) Description 05/26/2025 11:00 AM EST Office Visit [facility] [id number] [address] [phone] Trever Dickson PA 85 [place] [address] documented as of this encounter Visit Diagnoses Not on filedocumented in this encounter Care Teams Pantograph Operator Relationship Specialty Start Date End Date Lauren Hutchison MD [address] [place] [address] PCP - General 05/05/23 Sandra Aquino RN [address] [place] [address] Nurse Navigator Surgery, Neurosurgery 09/09/24 12/09/24 documented as of this encounter
--- OUTSIDE RECORDS SUMMARY | 2025-04-12 16:21 | XMS_ITS | Encounter Summary ---
Author Organization [facility] Address [address] [place] [address] Care Team Providers Care Support Representative Name Role Phone Lauren Hutchison MD Primary Care Provider [phone]- [phone] Sandra Aquino RN Unavailable [phone] Encounter Details Date Type Department Care Team (Late Contact Info) Description 05/05/2024 Telephone [facility] Neurosurgery [place] [address] [place] [address] Maria Ybarra MA [address] [facility] [address] [place], [place] [phone] Social History Tobacco Use Types Packs/Day Years [...] 11:00 AM EST Office Visit [facility] [id number] [address] [place] [address] [address] [facility] [place] [address] Trever Dickson PA [address] [place] [address] documented as of this encounter Visit Diagnoses Not on filedocumented in this encounter Care Teams Support Representative Relationship Specialty Start Date End Date Lauren Hutchison MD [address] [place] [address] PCP - General 05/05/23 Sandra Aquino RN [address] [place] [address] Nurse Navigator Surgery, Neurosurgery 09/09/24 12/09/24 documented as of this encounter
--- OUTSIDE RECORDS SUMMARY | 2025-04-12 16:21 | XMS_ITS | Encounter Summary ---
Author Organization [facility] Address [address] [place] [address] Care Team Providers Care Supervisor [employer] Name Role Phone Lauren Hutchison MD Primary Care Provider [phone]- [phone] Sandra Aquino RN Unavailable [phone] Encounter Details Date Type Department Care Team (Late st Contact Info) Description 09/28/2024 Scanned Document [facility] [id number] [address] [address] Trever Dickson PA 85 [place] [address] Social History Tobacco Use Types Packs/Day [...] more drinks on one occasion? Never 08/20/2024 PHQ-2 Answer Date Recorded PHQ-2 Total Score 2 08/30/2024 Comments Unknown Sex and Gender Information Value [...] 11:00 AM EST Office Visit [facility] [id number] [address] [place] [phone] Trever Dickson PA [address] [place] [address] documented as of this encounter Visit Diagnoses Not on filedocumented in this encounter Care Teams Supervisor [employer] Relationship Specialty Start Date End Date Lauren Hutchison MD [address] [place] [address] PCP - General 05/05/23 Sandra Aquino RN [address] [place] [address] Nurse Navigator Surgery, Neurosurgery 09/09/24 12/09/24 documented as of this encounter
--- OUTSIDE RECORDS SUMMARY | 2025-04-12 16:21 | XMS_ITS | Encounter Summary ---
Author Organization [facility] Address [address] [place] [address] Care Team Providers Care Reading Professor Name Role Phone Lauren Hutchison MD Primary Care Provider [phone]- [phone] Encounter Details Date Type Department Care Team (Late Contact Info) Description 01/31/2025 Scanned Document [facility] PROGRAMMING DEVELOPMENT PROJECT MANAGER SCAN Physical Therapy, Scan Social History Tobacco Use Types Packs/Day [...] 11:00 AM EST Office Visit [facility] [id number] [address] [place] [address] Trever Dickson PA 85 [place], [place] [phone] documented as of this encounter Visit Diagnoses Not on filedocumented in this encounter Care Teams Reading Professor Relationship Specialty Start Date End Date Lauren Hutchison MD [address] [place] [address] PCP - General 05/05/23 documented as of this encounter
--- OUTSIDE RECORDS SUMMARY | 2025-04-12 16:21 | XMS_ITS | Encounter Summary ---
Author Organization [facility] Address [address] [place] [address] Care Team Providers Care Orthodontist Assistant Name Role Phone Lauren Hutchison MD Primary Care Provider [phone]- [phone] Sandra Aquino RN Unavailable [phone] Encounter Details Date Type Department Care Team (Late st Contact Info) Description 11/09/2024 Scanned Document [facility] [id number] [address] [address] Trever Dickson PA [address] [place] [address] Social History Tobacco Use Types [...] 11:00 AM EST Office Visit [facility] [id number] [address] [place] [phone] Trever Dickson PA [address] [place] [address] documented as of this encounter Visit Diagnoses Not on filedocumented in this encounter Care Teams Orthodontist Assistant Relationship Specialty Start Date End Date Lauren Hutchison MD [address] [place] [address] PCP - General 05/05/23 Sandra Aquino RN [address] [place] [address] Nurse Navigator Surgery, Neurosurgery 09/09/24 12/09/24 documented as of this encounter
--- OUTSIDE RECORDS SUMMARY | 2025-04-12 16:21 | XMS_ITS | Encounter Summary ---
Author Organization [facility] Address [address] [place] [address] Care Team Providers Care Intervention Specialist Name Role Phone Lauren Hutchison MD Primary Care Provider [phone]- [phone] Encounter Details Date Type Department Care Team (Late st Contact Info) Description 02/18/2025 Scanned Document [facility] Neurosurgery [place] [address] [facility] [address] [place] [address] Geoffrey Rowland MD 85 [facility] [address] [place] [address] Social History Tobacco Use Types Packs/Day Years [...] 11:00 AM EST Office Visit [facility] [id number] [address] [address] Trever Dickson PA 85 [place], [place] [phone] documented as of this encounter Visit Diagnoses Not on filedocumented in this encounter Care Teams Intervention Specialist Relationship Specialty Start Date End Date Lauren Hutchison MD [facility]4 [place] [address] PCP - General 05/05/23 documented as of this encounter
--- OUTSIDE RECORDS SUMMARY | 2025-04-12 16:21 | XMS_ITS | Encounter Summary ---
Author Organization [facility] Address [address] [place] [address] Care Team Providers Care Greeting Card Editor Name Role Phone Lauren Hutchison MD Primary Care Provider [phone] Encounter Details Date Type Department Care Team (Late Contact Info) Description 03/04/2025 Scanned Document C SENIOR TECHNICAL ANALYST SCAN Physical Therapy, Scan Social History Tobacco [...] 11:00 AM EST Office Visit [facility] [id number] [address] [place] [address] Trever Dickson PA 85 [place], [place] [phone] documented as of this encounter Visit Diagnoses Not on filedocumented in this encounter Care Teams Greeting Card Editor Relationship Specialty Start Date End Date Lauren Hutchison MD [address] [place] [address] PCP - General 05/05/23 documented as of this encounter
--- OUTSIDE RECORDS SUMMARY | 2025-04-12 16:21 | XMS_ITS | Clinical Summary ---
Author Organization [facility] Address [address] [place] [address] Care Team Providers Care Safety Supervisor Name Role Phone Lauren Hutchison MD Primary Care Provider [phone] Allergies Active Allergy Reactions Criticality Noted Date Comments Cortisone Other (See Comments) Medium 04/03/2022 Per patient certain cortisone cause dizziness & nauseous Influenza Vaccines Unknown/Patient and Family Unable to Define Medium 02/01/2021 All flu shots arm swelling redness painful for about a week after unless she takes benedryl Naproxen Other (See Comments) 12/12/2016 Nuts Anaphylaxis High 01/31/2021 Peanut Oil Anaphylaxis High 02/01/2021 Medications DULoxetine (Cymbalta) 60 MG capsule Take 1 capsule (60 mg total) by mouth every morning. Active amLODIPine (NORVASC) 5 MG tablet 1 tablet (5 mg total) nightly. 3 Active aspirin enteric coated (ECOTRIN LOW STRENGTH) 81 MG EC tablet Take 1 tablet (81 mg total) by mouth nightly. Active atorvastatin (LIPITOR) 20 MG tablet Take 1 tablet (20 mg total) by mouth nightly. 3 Active clonazePAM (KlonoPIN) 0.5 MG tablet 60 each, 0 Refill(s), 0 Refills, 01/30/23 10:05:00 EDT, Partial fill upon patient request if the prescription is for a schedule II opioid drug. 3 Active DULoxetine (CYMBALTA) 30 MG capsule nightly. 3 Active nortriptyline (PAMELOR) 10 MG capsule 3 capsules (30 mg total) nightly. 3 Active ondansetron (ZOFRAN) 4 MG tablet 3 times daily (every 8 hours) as needed. 3 Active RABEprazole (ACIPHEX) 20 MG tablet 2 times a day. 3 Active traMADol (ULTRAM) 50 MG tablet 3 times daily (every 8 hours) as needed. 3 Active estradiol (Yuvafem) 10 MCG vaginal tablet See Instructions, TAKE 1 TABLET VAGINALLY AT BEDTIME TWICE WEEKLY, # 26 tablet, 3 Refills, Maintenance, 08/19/23 17:04:00 EST, [facility], 158, cm, 07/31/23 9:51:00 EST, Height, 93.6, kg, 01/30/23 10:10:00 EDT, Dry Weight 4 Active fluticasone (FloNASE) 50 mcg/spray nasal spray 1 spray into each nostril as needed. 4 Active Probiotic Product (PROBIOTIC PO) Take by mouth every morning. Active acetaminophen (TYLENOL) 325 MG tabletIndicatio ns:Sacroiliac joint pain Take 2 tablets (650 mg total) by mouth 4 times daily (every 6 hours) as needed for mild pain, moderate pain, headaches or fever. 240 tablet 5 Active gabapentin (NEURONTIN) 600 MG tabletIndicatio ns:Sacroiliac joint pain Take 1 tablet (600 mg total) by mouth 3 (three) times a day. 90 tablet 5 Active lidocaine (LIDODERM) 5 % patchIndication s:Pain of left hip Place 1 patch on the skin daily. Apply patch to left hip and leave on for 12 hours then remove. Patch may remain on skin for 12 hours per day. 30 patch 5 Active metaxalone (SKELAXIN) 800 MG tablet TAKE 1 TABLET BY MOUTH 4 TIMES A DAY NEEDED FOR SPASM. 5 Active Active Problems Problem Noted Date Diagnosed Date Pain of left hip 12/10/2024 Sprain of sacroiliac ligament 03/17/2024 Sacroiliac joint pain 05/22/2023 Spondylosis of lumbar spine 05/22/2023 Encounters Date Type Department Care Team Description 03/04/2025 Scanned Document [facility] DISASTER RECOVERY ANALYST SCAN Physical Therapy, Scan 02/22/2025 Telephone [facility] [id number] [address] [facility] [address] [place] [address] Trever Dickson PA Referral 02/21/2025 11:30 AM EDT Office Visit [facility] [id number] [address] [facility] [address] [place] [address] Trever Dickson PA Sacroiliac joint pain (Primary Dx) 02/21/2025 Travel 02/18/2025 Orders Only [facility] [address] [place] [address] Adeline Herrera PA-C 02/18/2025 Scanned Document [facility] Neurosurgery [place] [address] [facility] [address] [place] [address] Geoffrey Rowland MD 02/07/2025 Telephone [facility] [id number] [address] [facility] [address] [place] [address] Adeline Herrera PA-C 01/31/2025 9:15 AM EDT Consult [facility] Department of Physiatry [place] [address] [place] [phone] Danielle Vaca MD Sacroiliac joint pain (Primary Dx); Spondylosis of lumbar spine; Sprain of sacroiliac ligament, subsequent encounter; Primary osteoarthritis of left hip; Difficulty walking 01/31/2025 Scanned Document [facility] DISASTER RECOVERY ANALYST SCAN Physical Therapy, Scan from Last 3 Months Family History Medical History Relation Name Comments Heart disease Father Throat cancer Father Heart disease Mother Parkinson's disease Mother Relation Name Status Comments Father Mother Social History Tobacco Use Types Packs/Day Years Used Date Smoking Tobacco: Never Smokeless Tobacco: Never Tobacco Cessation:Counseling Given: Not Answered Alcohol Use Standard Drinks/Week Comments Not Currently [...] Orientation Heterosexual (straight) 08/30 5:58 AM EST Last Filed Vital Signs Vital Sign Reading Time Taken Comments Blood Pressure 115/58 02/21/2025 11:46 AM EDT Pulse 81 02/21/2025 11:46 AM EDT Temperature 36.3 C (97.3 F) 02/21/2025 11:46 AM EDT Respiratory Rate 18 12/10/2024 11:35 AM EDT Oxygen Saturation 99% 02/21/2025 11:46 AM EDT Inhaled Oxygen Concentration - - Weight 86.6 kg (191 lb) 12/10/2024 11:35 AM EDT Height 157.5 cm (5' 2.01 ) 02/21/2025 11:46 AM E DT Body Mass Index 34.93 12/10/2024 11:35 AM EDT Plan of Treatment Upcoming Encounters Date Type Department Care Team (Late st Contact Info) Description 05/26/2025 11:00 AM EST Office Visit [facility] [id number] [address] [place] [address] Trever Dickson PA [address] [place] [address] Health Maintenance Due Date Last Done Comments Hepatitis C Virus Screening 1965 HIV Screening 12/05/1976 DTaP/Tdap/Td Vaccines (1 - Tdap) 12/05/1982 Pap Smear (Ages 21-65) 12/05/1984 Mammogram 2003 Colonoscopy 12/05/2008 Pneumococcal Vaccines 50+ (1 of 1 - PCV) 12/05/2013 Zoster (Shingles) Vaccine (1 of 2) 12/05/2013 RSV Vaccine 60 years and older and Patients (1 - Risk 60-74 years 1-dose series) 2023 Influenza Vaccine 02/18/2025 05/11/2024, , 05/08/2022, Additional history exists COVID-19 Vaccine ( season) 2025 06/23/2021, 09/15/2020, 08/18/2020 Hepatitis B Vaccines Aged Out No long er eligible based on patient's age to complete this topic Medical Devices Implanted Type Area Position Clerk Device Identifier Shelf Expiration Date Model / Serial / Lot 7060m-90 System Spinal Fixation 60mm 7mm Ifuse Implant Sys Sacroiliac - [id number] Implanted:Qty : 1 on 08/30/2024 at [facility] Spine Right: Sacrum [employer] [id number] 05/03/2028 7060M-90 / / [id number] 7035m-90 System Spinal Fixation 35mm 7mm Ifuse Implant Sys Sacroiliac - [id number] Implanted:Qty : 1 on 08/30/2024 by Geoffrey Rowland MD at [facility] Spine Right: Sacrum [employer] [id number] 10/05/2026 7035M-90 / / [id number] Description:2 pieces of unkn own vendor hardwares are explanted. X-rays confirmed the removal of implants. 7040m-90 System Spinal Fixation 40mm 7mm Ifuse Implant Sys Sacroiliac - [id number] Implanted:Qty : 1 on 08/30/2024 by Geoffrey Rowland MD at [facility] Spine Right: Sacrum [employer] [id number] 06/15/2029 7040M-90 / / [id number] Filler Bone Void 5cc Dbx Algrf Putty Frzdr - [id number] Implanted:Qty : 1 on 08/30/2024 by Geoffrey Rowland MD at [facility] Void Filler Right: Sacrum [employer] 03/02/2026 [id number] / [id number] Filler Bone Void 1cc Dbx [facility] Frzdr Caro - [id number] Implanted:Qty : 1 on 08/30/2024 by Geoffrey Rowland MD at [facility] Void Filler Right: Sacrum [employer]LET[employer] 03/17/2026 [id number] / [id number] / Procedures Procedure Name Priority Date/Time Associated Diagnosis Comments XR PELVIS 1/2 VIEWS -ROUTINE Routine 02/18/2025 12:01 PM EDT from Last 3 Months Results * XR PELVIS 1/2 VIEWS -ROUTINE (02/18/2025 12:01 PM EDT) Anatomical Region Laterality Modality Other 02/18/2025 11:1 5 AM EDT 02/18/2025 11:15 AM EDT Impressions 02/28/2025 3:29 PM EDT 1. No acute fractures or malalignment. 2. Stable right sacroiliac fusion hardware without complication. 3. Moderate degenerative osteoarthritis in the left greater than right hips. Electronically signed by: Martha Choe MD 02/28/2025 03:29 PM EDT RP Thank you for referring your patient to us, Martha Choe MD [phone] (Electronically Signed - 02/28/2025 15:29) Copy: PATIENT , Narrative 02/28/2025 3:29 PM EDT EXAMINATION: XR PELVIS CLINICAL INFORMATION: Pain. COMPARISON: Pelvic radiograph 12/09/2024. TECHNIQUE: AP view of the pelvis. FINDINGS: Stable appearance of right sacroiliac fusion hardware. No evidence of hardware loosening or fracture. No acute fractures or malalignment. Moderate degenerative osteoarthritis in the left greater than right hips. Pubic symphysis and pelvic rim are maintained. No significant focal soft tissue abnormality. Procedure Note Martha Choe MD - 02/28/2025 EXAMINATION: XR PELVIS CLINICAL INFORMATION: Pain. COMPARISON: Pelvic radiograph 12/09/2024. TECHNIQUE: AP view of the pelvis. FINDINGS: Stable appearance of right sacroiliac fusion hardware. No evidence ofhardware loosening or fracture. No acute fractures or malalignment.Moderate degenerative osteoarthritis in the left greater than right hips.Pubic symphysis and pelvic rim are maintained. No significant focal soft tissue abnormality. IMPRESSION: 1. No acute fractures or malalignment. 2. Stable right sacroiliac fusion hardware without complication. 3. Moderate degenerative osteoarthritis in the left greater than righthips. Electronically signed by: Martha Choe MD 02/28/2025 03:29 PM EDT RPWorkstation: [id number] Thank you for referring your patient to us, Martha Choe MD [id number] (Electronically Signed - 02/28/2025 15:29) Copy: PATIENT , Adeline Herrera PA-C IMG LEGACY PROCEDURES Final R esult from Last 3 Months Insurance [facility] Advance Directives Documents on File Type Date Recorded Patient Retail Pricing Coordinator Expl anation Advance Directive-Scan 09/07/2024 Geoffrey Michaud EALTHCARE PROXY/ HH/ 09/07/2024 * Full Code (Latest Code Status on File) Date Activated Date Inactivated Comments 08/30/2024 10:09 AM Care Teams Safety Supervisor Relationship Specialty Start Date End Date Lauren Hutchison MD [address] [facility] [place] [address] PCP - General 05/05/23
--- OUTSIDE RECORDS SUMMARY | 2025-04-12 16:21 | XMS_ITS | Encounter Summary ---
Author Organization [facility] Address [address] [place] [address] Care Team Providers Care Wait Staff Name Role Phone Lauren Hutchison MD Primary Care Provider +1- [phone] aSndra Aquino RN Unavailable [phone] Encounter Details Date Type Department Care Team (Late st Contact Info) Description 09/01/2024 Scanned Document [facility] [id number] [address] [address] Adeline Herrera PA-C 85 [place] [address] Social History Tobacco Use Types [...] 11:00 AM EST Office Visit [facility] [id number] [address] [place] [phone] Trever Dickson PA 85 [place] [address] documented as of this encounter Visit Diagnoses Not on filedocumented in this encounter Care Teams Wait Staff Relationship Specialty Start Date End Date Lauren Hutchison MD [address] [place] [address] PCP - General 05/05/23 Sandra Aquino RN [address] [place] [address] Nurse Navigator Surgery, Neurosurgery 09/09/24 12/09/24 documented as of this encounter
[2025-04-28 14:28] VITALS: BMI 34.0
[2025-05-03 09:23] VITALS: BMI 30.6
[2025-05-03 09:27] VITALS: BP 130/60; PULSE 77; RESP 16; TEMP 36.7; O2SAT 100
--- NOTE | 2025-05-03 09:38 | HO.ANESPROP2 ---
Documented by User: Padmini Kingston NP 04/29/25 08:29 HPI - Anesthesia Eval Consult details Narrative: 59yo F for Upper Endoscopy and Colonoscopy PMFSH Active Problems Active Problems: All Active Problems Spinal stenosis, lumbar (Acute) Disc degeneration, lumbar (Acute) Spondylosis of lumbar spine (Acute) Arthropathy of lumbosacral facet joint (Acute) Chronic pain syndrome (Acute) Postlaminectomy syndrome (Acute) Past Medical History Medical History (Updated 04/28/25 @ 14:17 by Ana Mir RN) Vertigo Migraines Back pain GERD (gastroesophageal reflux disease) Fibromyalgia Hyperlipidemia HTN (hypertension) Spinal stenosis, lumbar Disc degeneration, lumbar Spondylosis of lumbar spine Arthropathy of lumbosacral facet joint Chronic pain syndrome Postlaminectomy syndrome Surgical History Surgical History (Updated 05/03/25 @ 09:23 by Kathy Velazquez RN) History of surgery Hx of tonsillectomy Hx of spinal fusion Hx of laminectomy H/O colonoscopy History of esophagogastroduodenoscopy (EGD) Social History Social History Patient Tobacco Use Status: Former Tobacco user Use of substances other than those prescribed or required for medical reasons: No Are you DNR?: No Advance Directives: No Advance Directives Information Provided: Yes Patient : No : No Poor oral hygiene: No Meds Allergies Allergy/AdvReac Type Severity Reaction Status Date / Time nut - unspecified Allergy Anaphylaxis Verified 05/03/25 09:21 cortisone AdvReac Vomiting Verified 05/03/25 09:21 Influenza Virus Vaccines AdvReac Swelling Verified 05/03/25 09:21 Home Medications ?Medication ?Instructions ?Recorded ?Confirmed ?Last Taken ?Type amlodipine 5 mg tablet 5 mg PO BEDTIME 04/12/21 05/03/25 Unknown History duloxetine 60 mg capsule,delayed 60 mg PO DAILY 04/12/21 04/28/25 Unknown History release metaxalone 800 mg tablet 800 mg PO QID PRN Muscle Spasm 04/12/21 04/28/25 05/03/25 History atorvastatin 20 mg tablet 20 mg PO BEDTIME 04/28/25 05/03/25 Unknown History clonazepam 0.5 mg tablet 0.5 mg PO NEEDED 04/28/25 04/28/25 Unknown History gabapentin 600 mg tablet 600 mg PO TID 04/28/25 04/28/25 05/03/25 History nortriptyline 25 mg capsule 75 mg PO BEDTIME 04/28/25 04/28/25 Unknown History ondansetron HCl 4 mg tablet 4 mg PO nausea 04/28/25 Unknown History rabeprazole 20 mg tablet,delayed 20 mg PO BID 04/28/25 04/28/25 Unknown History release tramadol 50 mg tablet 50 mg PO BID PRN Pain 04/28/25 04/28/25 Unknown History acetaminophen 325 mg capsule mg 05/03/25 05/03/25 05/03/25 History aspirin 05/03/25 04/28/25 History Exam Height,Weight and Vital Signs: Height 5 ft 2 in Weight 84.368 kg Assessment and Plan Assessment Anesthesia Assessment: Chart Reviewed Documented by User: Elina Bain DO 05/03/25 09:39 [facility] Past Medical History Medical History (Updated 04/28/25 @ 14:17 by Ana Mir RN) Vertigo Migraines Back pain GERD (gastroesophageal reflux disease) Fibromyalgia Hyperlipidemia HTN (hypertension) Spinal stenosis, lumbar Disc degeneration, lumbar Spondylosis of lumbar spine Arthropathy of lumbosacral facet joint Chronic pain syndrome Postlaminectomy syndrome Family History Family history of problems with anesthesia: No Surgical History Surgical History (Updated 05/03/25 @ 09:23 by Kathy Velazquez RN) History of surgery Hx of tonsillectomy Hx of spinal fusion Hx of laminectomy H/O colonoscopy History of esophagogastroduodenoscopy (EGD) History of Problems with Anesthesia: No Social History Social History Patient Tobacco Use Status: Former Tobacco user Use of substances other than those prescribed or required for medical reasons: No Are you DNR?: No Advance Directives: No Advance Directives Information Provided: Yes Patient : No : No Poor oral hygiene: No Meds Allergies Allergy/AdvReac Type Severity Reaction Status Date / Time nut - unspecified Allergy Anaphylaxis Verified 05/03/25 09:21 cortisone AdvReac Vomiting Verified 05/03/25 09:21 Influenza Virus Vaccines AdvReac Swelling Verified 05/03/25 09:21 Home Medications ?Medication ?Instructions ?Recorded ?Confirmed ?Last Taken ?Type amlodipine 5 mg tablet 5 mg PO BEDTIME 04/12/21 05/03/25 Unknown History duloxetine 60 mg capsule,delayed 60 mg PO DAILY 04/12/21 04/28/25 Unknown History release metaxalone 800 mg tablet 800 mg PO QID PRN Muscle Spasm 04/12/21 04/28/25 05/03/25 History atorvastatin 20 mg tablet 20 mg PO BEDTIME 04/28/25 05/03/25 Unknown History clonazepam 0.5 mg tablet 0.5 mg PO NEEDED 04/28/25 04/28/25 Unknown History gabapentin 600 mg tablet 600 mg PO TID 04/28/25 04/28/25 05/03/25 History nortriptyline 25 mg capsule 75 mg PO BEDTIME 04/28/25 04/28/25 Unknown History ondansetron HCl 4 mg tablet 4 mg PO nausea 04/28/25 Unknown History rabeprazole 20 mg tablet,delayed 20 mg PO BID 04/28/25 04/28/25 Unknown History release tramadol 50 mg tablet 50 mg PO BID PRN Pain 04/28/25 04/28/25 Unknown History acetaminophen 325 mg capsule mg 05/03/25 05/03/25 05/03/25 History aspirin 05/03/25 04/28/25 History Exam Exam Date and Time: 05/03/25 0920 Airway Mallampati Class: II TM Dist: >3cm Neck ROM: Full Partial: Upper Heart: S1S2 Lungs: CTAB Assessment and Plan Assessment Anesthesia Assessment: Anesthesia Plan Discussed and Chart Reviewed Final Anesthetic Review Family History of Problems with Anesthesia: No History of Problems with Anesthesia: No NPO: Yes ASA Class: II Final Preanesthetic Review: No Changes in Pt Med Stat, Meds/Allgs Chart Reviewed, Consent Obtained/Reviewed and Anes Risks/Benef Reviewed Patient Risk: Low Procedure Risk: Low Anesthetic Plan Anesthetic Plan: MAC: and Agree w/ Assess. and Plan Disposition: Standard PACU
--- NOTE | 2025-05-03 09:48 | MHC.SHP ---
Pre-Procedural Eval Section A - 24 Hr Update-Section A only Date of Service: 05/03/25 Section B - Complete if H&P > 30 days Chief Complaint: Iron deficiency anemia, unspecified Details of Present Illness: see H&P no changes Relevant Family History (Specify if Yes): No Relevant Social History: None Present Medications: see Short Stay Collaborative assessment Medical History: No relevant PMH History of Previous Operations: No relevant previous surgery Allergies: Allergies Allergy/AdvReac Type Severity Reaction Status Date / Time nut - unspecified Allergy Anaphylaxis Verified 05/03/25 09:21 cortisone AdvReac Vomiting Verified 05/03/25 09:21 Influenza Virus Vaccines AdvReac Swelling Verified 05/03/25 09:21 Review of Systems Sugical H&P ROS: Negative: Constitution, Cardiovascular, Respiratory, Neurological, Psychiatric, Hem-Onc, Allergic/Immunologic, Gastrointestinal, Genitourinary, Musculoskeletal, Integumentary, Endocrine and Eyes/Ears/Nose/Throat Exam Surgical H&P Exam: Normal: HEENT, Normal: Heart, Normal: Lungs, Normal: Extremities, Normal: Abdomen, Normal: Skin and Normal: Neurological Plan Diagnosis/Plan: Unchanged I have reviewed the history and physical and performed a pertinent physical examination on my patient. No changes have occurred unless specified. Time Spent With Patient Time: Total time managing care of this patient today ____ minutes.
[2025-05-03] MEDS: Lactated Ringers 1,000 ML 100 ML IVCONT (09:49)
[2025-05-03 10:48] VITALS: BP 120/54; PULSE 80; RESP 16; TEMP 36.6; O2SAT 95
[2025-05-03 11:00] VITALS: BP 125/49; PULSE 79; RESP 16; TEMP 36.6; O2SAT 95
--- NOTE | 2025-05-03 14:33 | OP_ITS ---
DATE OF SERVICE: 05/03/2025 SURGEON: Lars Garcia MD INDICATIONS: 1. Iron deficiency anemia. 2. Gastroesophageal reflux disease. PREOPERATIVE DIAGNOSIS: POSTOPERATIVE DIAGNOSIS: PROCEDURE PERFORMED: Upper endoscopy with biopsy, colonoscopy to the terminal ileum. ESTIMATED BLOOD LOSS: COMPLICATIONS: ANESTHESIA: Monitored anesthesia care. ASSISTANTS: SPECIMENS: DESCRIPTION OF PROCEDURE: A history and physical was performed. The risks and benefits of the procedure were explained to the patient, and informed consent was obtained. The patient was placed in the left lateral decubitus position. A digital rectal exam was performed prior to the colonoscopy and showed decreased sphincter tone. First, the Olympus video gastroscope was introduced into the esophagus, stomach, and duodenum. Examination was performed. The scope was removed. She was repositioned for colonoscopy. The Olympus pediatric video colonoscope was introduced into the rectum and advanced to the cecum. The cecum was identified by transillumination, palpation, and identification of the ileocecal valve. Examination was performed. The scope was removed. She tolerated both procedures well and was returned to the recovery area in stable condition. FINDINGS: Upper endoscopy: 1. Esophagus: The esophagus was normal. There was no esophagitis. Biopsies were obtained from the EG junction. 2. Stomach: The stomach showed prominent gastric folds, but no mucosal abnormalities. Antral biopsies were obtained to evaluate for H pylori. 3. Duodenum: The bulb and 2nd portion were normal. Random biopsies were obtained to rule out malabsorption. Colonoscopy: The terminal ileum was briefly examined and appeared normal. The visualized colonic mucosa was normal. There was a moderate to large amount of semi-formed viscous stool which limited the examination, particularly in the cecum, right colon, sigmoid, and rectum. This was washed and suctioned. No polyps were identified. The mucosa appeared normal endoscopically. Retroflexed examination was normal. IMPRESSION: 1. Gastroesophageal reflux disease. 2. Iron deficiency anemia. 3. Normal colonoscopy. RECOMMENDATION: Follow up the biopsy results. MD JOSE Hewitt/PATRICIA / [id number]
== END 2025-05-03 11:43 | disposition home or self-care (01) ==
PROVIDERS: PCP Internal Medicine Geriatric Medicine; Visit Provider Internal Medicine Gastroenterology
PROC: (CPT 45378; principal; 2025-05-03 10:20)
DX: D50.9 Iron deficiency anemia, unspecified (principal); Z12.11 Encounter for screening for malignant neoplasm of colon; K21.9 Gastro-esophageal reflux disease without esophagitis; K58.1 Irritable bowel syndrome with constipation
CPT/HCPCS: 45378; 43239; 88305; 88313; 88342; J2003; J2704; J3010